=== PATIENT | female | born 1980 | race Two or more races ===

== ENCOUNTER 2018-12-10 16:40 | Emergency (ER) | payer SELFPAY ==
[~2018-12-10] VITALS: Ht 165.1 cm; Wt 91.0 kg
[2018-12-10 18:19] VITALS: BP 120/77
== END 2018-12-10 18:35 | disposition home or self-care (01) ==
LOC: ER 16:40
DX: G44.209 Tension-type headache, unspecified, not intractable (principal); G47.00 Insomnia, unspecified; J45.909 Unspecified asthma, uncomplicated
CPT/HCPCS: 99283